=== PATIENT | male | born 1995 | race African-American/Black ===

== ENCOUNTER → 2017-04-19 | Outpatient (REF) | payer OTHER ==
[2017-04-19 15:04] LABS: SPERM ABNORMAL FORMS OTHER (SPECIFIY)
[2017-04-19 15:05] LABS: % NORMAL FORMS 7 % (>=4); IMMOTILITY 52 %; NON PROGRESSIVE MOTILITY (c) 15 %; PROGRESSIVE MOTILITY (a) 33 % (>=32); SPERM# 72.1 M/Ejac (>=39); TOTAL MOTILITY 48 % (>=40)
== END ==
LOC: M LAB REF 14:47
PROVIDERS: ATTEND Obstetrics & Gynecology
DX: N46.8 Other male infertility (principal)

== ENCOUNTER 2018-02-19 01:10 | Emergency (ER) | payer OTHER ==
[2018-02-19] MEDS: KETOROLAC 60 MG/2 ML VIAL (J1885) IM (01:45)
[2018-02-19] MEDS: methylPREDNISolone INJ 125 MG/2 ML VIAL (J2930) IM (01:45)
[2018-02-19] MEDS: METHOCARBAMOL 750 MG TAB PO (01:45)
== END 2018-02-19 02:35 | disposition home or self-care (01) ==
LOC: M ED 01:10
DX: M54.16 Radiculopathy, lumbar region (principal)
CPT/HCPCS: J1885